=== PATIENT | female | born 1970 | race Caucasian/White ===

== ENCOUNTER 2019-03-20 16:45 | Emergency (ER) | payer BC ==
[~2019-03-20] VITALS: Ht 170.2 cm; Wt 65.8 kg
--- NOTE | 2019-03-20 16:58 | NUR ---
ERMD at bedside for MSE
[2019-03-20] MEDS ORDERED: LIDOCAINE HCL 2% 20 ML VIAL TP ONE (17:15)
[2019-03-20 17:28] VITALS: BP 112/83
--- NOTE | 2019-03-20 17:28 | NUR ---
Patient discharged to home in stable conditon. Written and verbal after care instructions given. Patient verbalizes understanding of instructions. Patient ambulated with stable gait.
== END 2019-03-20 17:29 | disposition home or self-care (01) ==
LOC: ER 16:45
DX: S61.217A Laceration without foreign body of left little finger without damage to nail, initial encounter (principal); W26.0XXA Contact with knife, initial encounter; Y93.89 Activity, other specified; Y92.89 Other specified places as the place of occurrence of the external cause; Y99.8 Other external cause status
CPT/HCPCS: A4663